=== PATIENT | female | born 1995 | race African-American/Black ===

== ENCOUNTER 2021-06-29 17:11 | Emergency (ER) | payer OTHER, SELFPAY ==
[2021-06-29 17:17] VITALS: BP 125/78; PULSE 109; RESP 18; TEMP 36.8; O2SAT 100
--- NOTE | 2021-06-29 17:28 | ED.ABDPAIN ---
HPI - Abdominal Pain General Chief Complaint: Abdominal Pain Stated Complaint: stomach cramps, n/v Time Seen by Provider: 06/29/21 17:23 History of Present Illness HPI narrative: 26-year-old female presents the emergency room for evaluation of upper abdominal cramping associated with nausea and vomiting constipation. Patient states that she has been nauseated for 5 or 6 days. Patient abdominal pain is described as cramping, and began yesterday. Patient also admits that she has been constipated recently. Denies fever. Also reports irregular menses. Related Data Allergies Allergy/AdvReac Type Severity Reaction Status Date / Time No Known Allergies Allergy Verified 06/29/21 17:25 Review of Systems Review of Systems: CONSTITUTIONAL: Denies fever, chills, or sweats. EYES: Denies visual changes, redness, or discharge. ENT: Denies rhinorrhea, congestion, sore throat, or otalgia. CARDIOVASCULAR: Denies chest pain, palpitations, or edema. RESPIRATORY: Denies cough or dyspnea. GASTROINTESTINAL: Reports abdominal pain, nausea, vomiting, constipation GENITOURINARY: Denies dysuria or hematuria. SKIN: Denies rash or itching. MUSCULOSKELETAL: Denies back pain, joint pain, or myalgia. NEUROLOGIC: Denies headache, numbness, dizziness, or weakness. PSYCHIATRIC: Denies anxiety or depression. Exam Narrative: GENERAL: Well-appearing, well-nourished, and in no acute distress. HEAD: Normocephalic, atraumatic. EYES: PERRLA and EOMI. CHEST: Clear to auscultation. No respiratory distress. No wheezes rales or rhonchi HEART: Regular rate and rhythm. No murmur heard. Normal peripheral pulses. ABDOMEN: Soft, left upper quadrant tenderness, nondistended, normal active bowel sounds. EXTREMITIES: Normal range of motion. No edema. SKIN: Warm, dry, no rash. NEURO: No focal deficits. Alert and oriented x3. PSYCH: Normal mood and affect. Course Vital Signs Vital signs: Vital Signs Temperature 36.8 C 06/29/21 17:17 Pulse Rate 109 H 06/29/21 17:17 Respiratory Rate 18 06/29/21 17:17 Blood Pressure 125/78 06/29/21 17:17 Pulse Oximetry 100 06/29/21 17:17 Oxygen Delivery Room Air 06/29/21 17:17 Temperature 36.8 C 06/29/21 17:17 Pulse Rate 109 H 06/29/21 17:17 Respiratory Rate 18 06/29/21 17:17 Blood Pressure 125/78 06/29/21 17:17 Pulse Oximetry 100 06/29/21 17:17 Oxygen Delivery Room Air 06/29/21 17:17 MDM - Abdominal Pain Lab Data Result diagrams: 06/29/21 17:42 06/29/21 17:42 Labs: Lab Results 06/29/21 06/29/21 06/29/21 Range/Units 17:42 17:42 17:42 WBC 8.2 (4.5-10.0) K/mm3 RBC 4.00 L (4.2-5.4) M/mm3 Hgb 11.8 L (12.0-15.0) g/dL Hct 37.3 (37.0-47.0) % MCV 93.3 (80-100) fl MCH 29.5 (26-34) pg MCHC 31.6 L (32-36) g/dl RDW 15.3 H (11.5-14.5) % Plt Count 265 (150-375) k/mm3 MPV 10.9 H (7.4-10.4) fl Immature Gran % (Auto) 0.1 (0-0.5) % Neut % (Auto) 66.7 (45.5-73.1) % Lymph % (Auto) 27.8 (18.3-44.2) % [place] % (Auto) 4.5 (2.6-8.5) % Eos % (Auto) 0.4 (0-4.4) % Baso % (Auto) 0.5 (0.2-1.2) % Lymph # (Auto) 2.28 (0.9-3.2) K/mm3 [place] # (Auto) 0.4 (0.1-0.6) K/mm3 Eos # (Auto) 0.0 (0-0.3) K/mm3 Baso # (Auto) 0.0 (0.0-0.1) K/mm3 Abs Immat Gran (auto) 0.01 (0.00-0.031) K/mm3 Absolute Neuts (auto) 5.5 (1.3-6.7) K/mm3 Absolute Nucleated RBC 0.0 (0.0-0.012) K/mm3 Nucleated RBC % 0.0 (0.0-0.2) % Sodium 138 (137-145) mmol/L Potassium 4.0 (3.4-5.0) mmol/L Chloride 105 (98-107) mmol/L Carbon Dioxide 25 (22-30) mmol/L Anion Gap 8 (8-16) mmol/L BUN 7 (7-17) mg/dL Creatinine 0.60 L (0.7-1.0) mg/dL Estim Creat Clear Calc 99 ml/min Estimated GFR > 60 (59 - ) Glucose 96 (65-110) mg/dL Calcium 9.2 (8.4-10.2) mg/dL Total Bilirubin 0.8 (0.2-1.3) mg/dL AST 26 (14-36) U/L ALT 23 (6-35) U/L Alkaline Phosp
[2021-06-29 17:51] LABS: Basophils Percent Auto 0.5 % (0.2-1.2); Eosinophils Percent Auto 0.4 % (0-4.4); Hematocrit 37.3 % (37.0-47.0); Hemoglobin 11.8 g/dL (12.0-15.0); Immature Granulocyte Absolute 0.01 K/mm3 (0.00-0.031); Immature Granulocyte Percent A 0.1 % (0-0.5); Lymphocytes Absolute Auto 2.28 K/mm3 (0.9-3.2); Lymphocytes Percent Auto 27.8 % (18.3-44.2); Mean Corpuscular HGB Conc 31.6 g/dl (32-36); Mean Corpuscular Hemoglobin 29.5 pg (26-34); Mean Corpuscular Volume 93.3 fl (80-100); Mean Platelet Volume 10.9 fl (7.4-10.4); Monocytes Absolute Auto 0.4 K/mm3 (0.1-0.6); Monocytes Percent Auto 4.5 % (2.6-8.5); Neutrophils Absolute Auto 5.5 K/mm3 (1.3-6.7); Neutrophils Percent Auto 66.7 % (45.5-73.1); Platelet Count Result 265 k/mm3 (150-375); Red Cell Distribution Width 15.3 % (11.5-14.5); White Blood Count 8.2 K/mm3 (4.5-10.0)
[2021-06-29 17:52] LABS: Appearance Urine Clear (Clear); Bilirubin Urine Negative (Negative); Blood Urine Negative (Negative); Glucose Urine UA Negative (Negative); Ketones Urine Negative (Negative); Leukocyte Esterase Ur Negative LEU/UL (Negative); Nitrate Urine Negative (Negative); Protein Urine Negative (Negative); Urobilinogen Urine 0.2 mg/dL (<2.0)
[2021-06-29 17:56] LABS: Add Urine Microscopic? NO; Color Urine Light Yellow (Yellow)
[2021-06-29] MEDS: ONDANSETRON INJ 4 MG/2 ML VIAL IV PUSH (17:56)
[2021-06-29] MEDS: SODIUM CHLORIDE 0.9% IV 1,000 ML 999 ML IV CONT (17:57)
[2021-06-29] MEDS: DICYCLOMINE HCL INJ 20 MG/2 ML VIAL IM (17:57)
[2021-06-29 17:58] LABS: Alanine Aminotransferase 23 U/L (6-35); Albumin Level 4.6 g/dL (3.5-5.1); Alkaline Phosphatase 58 U/L (38-126); Anion Gap 8 mmol/L (8-16); Aspartate Amino Transferase 26 U/L (14-36); Bilirubin,Total 0.8 mg/dL (0.2-1.3); Blood Urea Nitrogen 7 mg/dL (7-17); Calcium 9.2 mg/dL (8.4-10.2); Carbon Dioxide 25 mmol/L (22-30); Chloride 105 mmol/L (98-107); Estimated CRCL calculation 99 ml/min; Estimated Glomerular Filt Rate > 60; Glucose 96 mg/dL (65-110); Sodium 138 mmol/L (137-145)
--- NOTE | 2021-07-01 11:04 | PC.NURSE ---
late entry 07/01/21 1847 ns bolus liter infused
== END 2021-06-29 18:45 | disposition home or self-care (01) ==
PROVIDERS: Emergency Provider Nurse Practitioner Family
DX: K52.9 Noninfective gastroenteritis and colitis, unspecified (principal)
CPT/HCPCS: 36415; 80053; 81003; 81025; 85025; 96361; 96372; 96374; 99284; J0500; J2405; J7030

== ENCOUNTER 2021-09-20 13:55 | Emergency (ER) | payer OTHER, SELFPAY ==
--- NOTE | ~2021-09-20 | XR_ITS ---
EXAMINATION: XR abdomen obstructive series DATE: 09/20/2021 15:06 INDICATION: Abdominal pain TECHNIQUE: Upright and supine views of the abdomen were obtained. COMPARISON: None. FINDINGS: There are no dilated loops of bowel. No free intraperitoneal gas is identified. There are m ultiple phleboliths of the pelvis. The visualized lung bases are clear. IMPRESSION: 1. Nonobstructive bowel gas pattern. Reviewed, dictated and finalized at location A.
[2021-09-20 13:58] VITALS: BP 122/71; PULSE 102; RESP 16; TEMP 36.8; O2SAT 99
[2021-09-20 14:14] LABS: Basophils Percent Auto 0.4 % (0.2-1.2); Eosinophils Percent Auto 0.3 % (0-4.4); Hematocrit 37.9 % (37.0-47.0); Hemoglobin 11.9 g/dL (12.0-15.0); Immature Granulocyte Absolute 0.04 K/mm3 (0.00-0.031); Immature Granulocyte Percent A 0.4 % (0-0.5); Lymphocytes Absolute Auto 2.12 K/mm3 (0.9-3.2); Lymphocytes Percent Auto 21.5 % (18.3-44.2); Mean Corpuscular HGB Conc 31.4 g/dl (32-36); Mean Corpuscular Hemoglobin 28.7 pg (26-34); Mean Corpuscular Volume 91.5 fl (80-100); Mean Platelet Volume 11.4 fl (7.4-10.4); Monocytes Absolute Auto 0.4 K/mm3 (0.1-0.6); Monocytes Percent Auto 4.2 % (2.6-8.5); Neutrophils Absolute Auto 7.2 K/mm3 (1.3-6.7); Neutrophils Percent Auto 73.2 % (45.5-73.1); Platelet Count Result 198 k/mm3 (150-375); Red Blood Count 4.14 M/mm3 (4.2-5.4); Red Cell Distribution Width 14.7 % (11.5-14.5); White Blood Count 9.8 K/mm3 (4.5-10.0)
[2021-09-20 14:24] LABS: Alanine Aminotransferase 20 U/L (6-35); Albumin Level 4.7 g/dL (3.5-5.1); Alkaline Phosphatase 52 U/L (38-126); Anion Gap 8 mmol/L (8-16); Aspartate Amino Transferase 21 U/L (14-36); Bilirubin,Total 0.3 mg/dL (0.2-1.3); Blood Urea Nitrogen 8 mg/dL (7-17); Carbon Dioxide 27 mmol/L (22-30); Chloride 103 mmol/L (98-107); Estimated CRCL calculation 75 ml/min; Estimated Glomerular Filt Rate > 60; Glucose 111 mg/dL (65-110); Lipase 51 U/L (23-300); Potassium 4.3 mmol/L (3.4-5.0); Sodium 138 mmol/L (137-145)
[2021-09-20 14:42] LABS: Appearance Urine Clear (Clear); Bilirubin Urine Negative (Negative); Blood Urine Negative (Negative); Color Urine Yellow (Yellow); Glucose Urine UA Negative (Negative); Ketones Urine Negative (Negative); Leukocyte Esterase Ur Negative LEU/UL (Negative); Nitrate Urine Negative (Negative); Protein Urine Negative (Negative); Specific Grav Ur 1.015 (1.001-1.035); Urobilinogen Urine 0.2 mg/dL (<2.0); pH Urine 7.5 (5.0-9.0)
[2021-09-20 14:47] LABS: Bacteria Urine 2+ /hpf; Mucus Urine Rare /lpf; RBC Urine 0-2 /hpf (0-2); Squamous Epithelial Cell Urine Many /hpf (Few); WBC Urine 0-3 /hpf
[2021-09-20 15:02] LABS: Add Urine Microscopic? NO
--- NOTE | 2021-09-20 15:06 | ED.GENADULT ---
HPI - General Adult General Chief complaint: Nausea/Vomiting/Diarrhea Stated complaint: stomach cramping and vomiting Time Seen by Provider: 09/20/21 13:59 Source: RN notes reviewed History of Present Illness HPI narrative: Patient presents emergency department from home for abdominal pain. Patient states symptoms been ongoing for the past 6 days. She states that she is having intermittent pain in the left side of the abdomen described as cramping in nature states is associated with intermittent nausea as well as emesis for the past 2 days she states currently she has no abdominal pain and no nausea states she has been constipated with the symptoms she states that she noticed that after she ate at a restaurant that she found out the next day was having health inspection issues she states that she is had no fevers or chills chest pain shortness of breath or any other symptoms Related Data Allergies Allergy/AdvReac Type Severity Reaction Status Date / Time No Known Allergies Allergy Verified 06/29/21 17:25 Review of Systems Review of Systems: Gen.: Denies fevers or chills ENT: Denies congestion Respiratory: Denies shortness of breath or cough CV: Denies chest pain or palpitations Abdomen: See HPI denies burning, urgency, frequency or hematuria Musculoskeletal: Denies back pain or muscle pain Neuro: Denies numbness, tingling, weakness or focal weakness Skin: Denies rash Except as documented, all other systems reviewed and negative [facility] Past Medical History Medical History (Updated 09/20/21 @ 15:26 by Andres Dominique DO) Patient denies significant medical history Social History Social History (Updated 09/20/21 @ 15:15 by Andres Dominique DO) Smoking status: Never smoker Exam Narrative: APPEARANCE: No acute distress, nontoxic, resting in bed EYES: EOMI HEENT: Normocephalic, atraumatic, OMM RESPIRATORY: No respiratory distress Clear to auscultation bilaterally with no rhonchi wheezing or rales. CARDIOVASCULAR: Regular rate and rhythm without murmurs rubs or gallops. ABDOMINAL: Soft, nontender, nondistended, no rebound or guarding MUSCULOSKELETAl: Moves all extremities. No clubbing, cyanosis or edema. NEURO: Awake and alert. Following commands, speech normal, no focal deficits SKIN:: Warm, dry. No rashes lesions or abrasions PSYCHIATRIC: Normal affect/mood, Course Course Emergency Course: Patient is remained asymptomatic throughout stay in ED abdominal exam remains soft and nontender Discussed with patient results of workup and diagnosis. Discussed need for follow-up with primary care, proper use of medication, and reasons to return to the emergency department. Patient understands and agrees to current treatment plan Vital Signs Vital signs: Vital Signs Temperature 98.2 F 09/20/21 13:58 Pulse Rate 102 H 09/20/21 13:58 Respiratory Rate 16 09/20/21 13:58 Blood Pressure 122/71 09/20/21 13:58 Pulse Oximetry 99 09/20/21 13:58 Oxygen Delivery Room Air 09/20/21 13:58 Temperature 98.6 F 09/20/21 15:25 Pulse Rate 80 09/20/21 15:25 Respiratory Rate 18 09/20/21 15:25 Blood Pressure 115/76 09/20/21 15:25 Pulse Oximetry 99 09/20/21 15:25 Oxygen Delivery Room Air 09/20/21 15:25 Medical Decision Making MDM Narrative Medical decision making narrative: Patient's abdomen is soft without significant pain or signs of surgical abdomen on serial exams. Lab and x-ray evaluations are reviewed and patient is felt to be a reasonable candidate for outpatient management. Patient was instructed as to limitations of x-ray and laboratory evaluation and encouraged to return to ED or primary physician for repeat exam in 12 hours if continued or worsening pain Vital Signs Vital Signs: Vital Signs Temperature 98.2 F 09/20/21 13:58 Pulse Rate 102 H 09/20/21 13:58 Respiratory Rate 16 09/20/21 13:58 Blood Pressure 122/71 09/20/21 13:58 Pulse Oximetry 99 09/20/21 13:58 Ox
[2021-09-20 15:25] VITALS: BP 115/76; PULSE 80; RESP 18; TEMP 37; O2SAT 99
[2021-09-20 15:33] VITALS: BP 101/65; BP 103/70; PULSE 82; PULSE 85
[2021-09-20 15:34] VITALS: BP 117/73; PULSE 100
[2021-09-20 16:05] VITALS: BP 105/73; PULSE 76; RESP 18; O2SAT 100
== END 2021-09-20 16:07 | disposition home or self-care (01) ==
LOC: ANHED 15:39
PROVIDERS: Emergency Provider Emergency Medicine
DX: R11.2 Nausea with vomiting, unspecified (principal); R10.9 Unspecified abdominal pain
CPT/HCPCS: 36415; 74019; 80053; 81003; 81025; 83690; 85025; 99283

== ENCOUNTER 2021-11-26 23:31 | Emergency (ER) | payer OTHER, SELFPAY ==
[2021-11-26 23:55] VITALS: BP 140/80; PULSE 96; RESP 16; TEMP 36.8; O2SAT 100
[2021-11-27 01:43] VITALS: BP 124/80; PULSE 84; RESP 16; TEMP 36.8; O2SAT 100
[2021-11-27 02:45] VITALS: BP 105/64; PULSE 69; RESP 16; TEMP 36.8; O2SAT 100
--- NOTE | 2021-11-27 04:59 | ED.GENADULT ---
HPI - General Adult General Chief complaint: Upper Respiratory Infection Stated complaint: cold symptoms Time Seen by Provider: 11/27/21 01:51 History of Present Illness HPI narrative: This is a 26-year-old female presenting ED with cold symptoms. Patient says that starting on she started to have cough and congestion. She says the cough is worse at night and in the mornings. She is coughing up some clear mucus. She denies fever chills. She denies nausea vomiting or diarrhea. She denies chest pain, shortness of breath, abdominal pain or urinary symptoms. She has taken Flonase insert take without any relief. She is requesting cough syrup. Related Data Allergies Allergy/AdvReac Type Severity Reaction Status Date / Time No Known Allergies Allergy Verified 11/26/21 23:57 Review of Systems Review of Systems: CONSTITUTIONAL: Denies night sweats. EYES: No eye pain ENT: Denies rhinorrhea CARDIOVASCULAR: Denies palpitations RESPIRATORY: Denies hemoptysis GASTROINTESTINAL: Denies hematemesis GENITOURINARY: Denies hematuria. SKIN: Denies rash MUSCULOSKELETAL: Denies myalgia. NEUROLOGIC: Denies weakness. PSYCHIATRIC: Denies delusions [facility] Past Medical History Medical History (Updated 11/27/21 @ 05:28 by Richardson Garcia MD) Patient denies significant medical history Social History Social History (Updated 09/20/21 @ 15:15 by Andres Dominique DO) Smoking status: Never smoker Exam Narrative: APPEARANCE: No apparent distress. Head: Atraumatic. no for pharyngeal edema or exudates EYES: PERRLA/EOMI, NOSE: Normal no drainage NECK: Supple, Trachea midline RESPIRATORY: CTAB, No increased work of breathing. CARDIOVASCULAR: S1S2 appreciated ABDOMINAL: Soft, nontender, nondistended, MUSCULOSKELETAl: No obvious deformities NEURO: Alert. Moving 4/4 extremities SKIN:: Warm, dry. Normal color PSYCHIATRIC: Normal affect Course Vital Signs Vital signs: Vital Signs Temperature 98.2 F 11/26/21 23:55 Pulse Rate 96 11/26/21 23:55 Respiratory Rate 16 11/26/21 23:55 Blood Pressure 140/80 11/26/21 23:55 Pulse Oximetry 100 11/26/21 23:55 Oxygen Delivery Room Air 11/26/21 23:55 Temperature 98.3 F 11/27/21 02:45 Pulse Rate 69 11/27/21 02:45 Respiratory Rate 16 11/27/21 02:45 Blood Pressure 105/64 11/27/21 02:45 Pulse Oximetry 100 11/27/21 02:45 Oxygen Delivery Room Air 11/27/21 01:43 Medical Decision Making MDM Narrative Medical decision making narrative: this is a 26-year-old female presenting ED with URI symptoms. Patient was tested for COVID and flu yesterday which were negative. Her vital signs are stable and she is well appearing. She is looking for treatment for her cough. I spoke to her about different options for cough medicine. She would like some Robitussin. Patient will be given robitussin and tylenol. Patient will be discharged home with primary care follow-up. Vital Signs Vital Signs: Vital Signs Temperature 98.2 F 11/26/21 23:55 Pulse Rate 96 11/26/21 23:55 Respiratory Rate 16 11/26/21 23:55 Blood Pressure 140/80 11/26/21 23:55 Pulse Oximetry 100 11/26/21 23:55 Oxygen Delivery Room Air 11/26/21 23:55 Temperature 98.3 F 11/27/21 02:45 Pulse Rate 69 11/27/21 02:45 Respiratory Rate 16 11/27/21 02:45 Blood Pressure 105/64 11/27/21 02:45 Pulse Oximetry 100 11/27/21 02:45 Oxygen Delivery Room Air 11/27/21 01:43 Discharge Plan Discharge Clinical Impression: Upper respiratory infection, Cough Patient Disposition: Home, Self-Care Condition: Stable Instructions: Antibiotic Form, Acute Cough (ED) Additional Instructions: Please take Motrin, Tylenol and Robitussin for symptom control. Please return emergency department if you develop chest pain, difficulty breathing or unable to tolerate p.o.. Please follow-up with your primary care physician for further management Prescripti
== END 2021-11-27 05:43 | disposition home or self-care (01) ==
PROVIDERS: Emergency Provider Emergency Medicine
DX: J06.9 Acute upper respiratory infection, unspecified (principal)
CPT/HCPCS: 99283

== ENCOUNTER 2023-02-22 10:47 | Emergency (ER) | payer OTHER, SELFPAY ==
[2023-02-22 10:49] VITALS: BP 108/69; PULSE 119; RESP 18; TEMP 36.6; O2SAT 100
--- NOTE | 2023-02-22 10:53 | ED.URI ---
HPI - URI/Sore Throat General Chief Complaint: Upper Respiratory Infection Stated Complaint: body aches, cough. 10 weeks Time Seen by Provider: 02/22/23 10:53 Source: patient Mode of arrival: ambulatory Limitations: no limitations History of Present Illness HPI Narrative: Rosa is a 27-year-old female patient presenting to the clinic today with complaints of body aches, cough, nausea, and vomiting. She reports these symptoms started on Monday. Reports not able to keep any fluids down. Feels as though she is dehydrated. She is 10 weeks . Denies any vaginal discharge or bleeding. Denies any abdominal pain or pelvic pain MD elicited complaint: cough, nasal congestion (Nausea, vomiting) and other (Body aches.) Related Data Allergies Allergy/AdvReac Type Severity Reaction Status Date / Time No Known Allergies Allergy Verified 02/22/23 11:04 Review of Systems Review of Systems: Pertinent positives per HPI. Patient denies any fever, chills, rash, headache, visual changes, dizziness, shortness of breath, chest pain, palpitations,diarrhea, constipation, abdominal pain, or any urinary issues. [facility] Past Medical History Medical History Patient denies significant medical history Social History Social History Smoking status: Never smoker Comments At the time of my signature, I reviewed and agree with the nursing past medical, surgical, social, and family history. There is no relevant family history pertinent to the patient complaint. Exam Narrative: General: Well-developed, well nourished, in no apparent distress Head: Normocephalic, atraumatic Eyes: Pupils equally round and reactive to light bilaterally, EOM intact, sclera and conjunctive clear, no discharge, lids normal Ears: TMs intact and clear, ear canals clear, no drainage, grossly hearing normal. Nose: Nares patent, clear discharge, no inflammation, no sinus tenderness. Mouth: Oral pharynx without lesions or masses, good dentition, MM dry. Neck: Supple, trachea midline, no enlargement of anterior or posterior cervical nodes, no thyroid masses or goiter palpable. Cardio: Regular rate and rhythm, s1 and s2 normal, no murmur appreciated. Resp: Clear to auscultation bilaterally, no rhonchi, rales, wheezing or rubs Abdomen: Soft, pliable, bowel sounds present all 4 quadrants, nontender palpation, no organomegaly, no CVAT tenderness Course Course Emergency Course: Portions of this record may have been created with voice recognition software. Vital Signs Vital signs: Vital Signs Temperature 36.6 C 02/22/23 10:49 Pulse Rate 119 H 02/22/23 10:49 Respiratory Rate 18 02/22/23 10:49 Blood Pressure 108/69 02/22/23 10:49 Pulse Oximetry 100 02/22/23 10:49 Temperature 36.6 C 02/22/23 10:49 Pulse Rate 96 02/22/23 14:10 Respiratory Rate 18 02/22/23 14:10 Blood Pressure 102/62 02/22/23 14:10 Pulse Oximetry 100 02/22/23 14:10 Oxygen Delivery Room Air 02/22/23 11:02 Vital signs reviewed MDM - URI/Sore Throat MDM Narrative Medical decision making narrative: At the time of visit patient is resting comfortably on the exam table. Patient appears to be nontoxic. Labs: UA shows a trace of leukocytes otherwise negative. We will send for culture influenza test was positive for influenza A, COVID, influenza B, and RSV testing was negative Medications given: 1 L of normal saline and 4 mg of Zofran IV push Plan: Patient is positive for influenza A. 1 L of fluids and 4 of Zofran was given in the ER today patient states she feels better. Prescription for Tamiflu was sent to the pharmacy. Supportive measures were discussed with the patient and they voiced understanding discharge instructions and agrees to treatment plan. Return precautions reviewed Differential Diagnosis Differentia
[2023-02-22 12:00] LABS: Influenza A QL RT-PCR Positive (Negative); Influenza B QL RT-PCR Negative (Negative); RSV RNA, RT-PCR Negative (Negative); SARS-CoV-2 RNA PCR Negative (Negative)
[2023-02-22] MEDS: SODIUM CHLORIDE 0.9% IV 1,000 ML 999 ML IV CONT (12:57)
[2023-02-22] MEDS: ONDANSETRON INJ 4 MG/2 ML VIAL IV PUSH (12:57)
[2023-02-22 13:20] LABS: Add Urine Microscopic? YES; Appearance Urine Clear (Clear); Bacteria Urine None Seen /hpf; Bilirubin Urine Negative (Negative); Blood Urine Negative (Negative); Color Urine Yellow (Yellow); Glucose Urine UA Negative (Negative); Ketones Urine Negative (Negative); Leukocyte Esterase Ur Trace LEU/UL (Negative); Need Manual Microscopic Reviewed; Nitrate Urine Negative (Negative); Non Pathogenic Casts 0-2; Protein Urine Negative (Negative); RBC Urine 0-2 /hpf (0-2); Specific Grav Ur 1.006 (1.001-1.035); Squamous Epithelial Cell Urine Few /hpf (Few); WBC Urine 0-5 /hpf
[2023-02-22 14:10] VITALS: BP 102/62; PULSE 96; RESP 18; O2SAT 100
== END 2023-02-22 14:14 | disposition home or self-care (01) ==
PROVIDERS: Emergency Provider Nurse Practitioner Family; PCP Family Medicine
DX: O99.511 Diseases of the respiratory system complicating pregnancy, first trimester (principal); J10.1 Influenza due to other identified influenza virus with other respiratory manifestations; Z3A.10 10 weeks gestation of pregnancy; Z20.822 Contact with and (suspected) exposure to COVID-19
CPT/HCPCS: 81001; 87637; 96361; 96374; 99284; J2405; J7030

== ENCOUNTER 2023-08-05 21:04 | Observation (INO) | payer OTHER, SELFPAY ==
[2023-08-05 21:27] VITALS: BP 113/69; PULSE 100
--- NOTE | 2023-08-05 21:28 | LDADM ---
This patient, Rosa Brock, was admitted to Labor/Delivery/Recovery 105 on 08/05/23 at 21:04. Plans for labor, pain management and were discussed with patient. Patient/family oriented to hospital policies and general routines including ID bracelet, bed and alarms, visiting hours, pain management, procedures, bathroom and other care routines, personal items, smoking policy, room service/diet and guest tray routines, security routines, and visiting hours. Patient/Family are encouraged to report perceived risks to care and to ask questions if they do not understand what they are told or what they should do. See [facility]BI[facility] for further documentation.
--- NOTE | 2023-08-05 21:30 | PC.NURSE ---
pt presents to L&D via wheelchair from ER. pt is a , 34 weeks and 5 days . Pt complains of leaking of fluid and back pain that has since ceased. RN performed bedside ROM+.
--- NOTE | 2023-08-07 16:15 | PM.OBTRLD ---
OB - Triage/Final Diagnosis Visit Information Date of evaluation: 08/05/23 Reason for evaluation: threatened labor Comments/Additional reasons for admission: I have assessed the risk for this patient, Rosa Brock, and determined that she would benefit from observation care.
== END 2023-08-05 22:00 | disposition home or self-care (01) ==
PROVIDERS: Admitting Provider Obstetrics & Gynecology; PCP Family Medicine; Visit Provider Obstetrics & Gynecology
DX: O47.9 False labor, unspecified (principal)
CPT/HCPCS: 59025; G0378; G0379

== ENCOUNTER 2023-09-05 07:50 | Inpatient (IN) | payer OTHER, SELFPAY ==
[2023-09-05] VITALS (102 sets, daily range): BP systolic 94–135; BP diastolic 49–88; PULSE 76–237; RESP 18; TEMP 36.4–36.8; O2SAT 83–100; BMI 29.2
--- NOTE | 2023-09-05 08:17 | WPDOBADMIT ---
Obstetrics - Admit Note Admission Note: record reviewed. No pertinent additions to the history and/or any subsequent changes in the physical findings that are not consistent with the expected course of the were found. Additions to the history and/or subsequent changes in the physical findings follow. admit for labor, anticipate vaginal delivery
[2023-09-05 08:37] LABS: Basophils Percent Auto 0.2 % (0.2-1.2); Eosinophils Absolute Auto 0.1 K/mm3 (0-0.3); Eosinophils Percent Auto 0.6 % (0-4.4); Hematocrit 26.8 % (37.0-47.0); Hemoglobin 8.2 g/dL (12.0-15.0); Immature Granulocyte Absolute 0.04 K/mm3 (0.00-0.031); Immature Granulocyte Percent A 0.4 % (0-0.5); Lymphocytes Absolute Auto 1.58 K/mm3 (0.9-3.2); Mean Corpuscular HGB Conc 30.6 g/dl (32-36); Mean Corpuscular Hemoglobin 25.5 pg (26-34); Mean Corpuscular Volume 83.2 fl (80-100); Mean Platelet Volume 11.5 fl (7.4-10.4); Monocytes Absolute Auto 0.6 K/mm3 (0.1-0.6); Neutrophils Absolute Auto 8.2 K/mm3 (1.3-6.7); Neutrophils Percent Auto 77.8 % (45.5-73.1); Platelet Count Result 214 k/mm3 (150-375); Red Blood Count 3.22 M/mm3 (4.2-5.4); Red Cell Distribution Width 16.2 % (11.5-14.5); White Blood Count 10.5 K/mm3 (4.5-10.0)
[2023-09-05] MEDS: AMPICILLIN 2 GM/NS 100 ML 2 GM/100 ML BAG IVPB (09:00)
[2023-09-05] MEDS: LACTATED RINGERS 1,000 ML 125 ML IV CONT ×2 (09:00→09:59)
[2023-09-05 09:28] LABS: HIV 1/2 Ab P24 Ag Result Negative (Negative)
--- NOTE | 2023-09-05 11:18 | WPDANESEPPF ---
Anes - Initial Pre Proc Eval Procedure: labor epidural Date/Time: 09/05/23 11:18 Surgeon: Sohail Benjamin MD Pre Op Diagnosis: labor pain Pre Op Diagnosis: Contractions Patient Data Age: 28 Gender: F Height: 1.6 m Weight: 75 kg Last Vital Signs Pulse 91 09/05/23 11:18 BP 113/78 09/05/23 11:18 Pulse Ox 100 09/05/23 11:16 O2 Del Method Room Air 09/05/23 08:21 Allergies Allergy/AdvReac Type Severity Reaction Status Date / Time No Known Allergies Allergy Verified 02/22/23 11:04 Laboratory Tests 09/05/23 08:15 WBC 10.5 H K/mm3 (4.5-10.0) RBC 3.22 L M/mm3 (4.2-5.4) Hgb 8.2 L D g/dL (12.0-15.0) Hct 26.8 L % (37.0-47.0) MCV 83.2 fl (80-100) MCH 25.5 L pg (26-34) MCHC 30.6 L g/dl (32-36) RDW 16.2 H % (11.5-14.5) Plt Count 214 k/mm3 (150-375) MPV 11.5 H fl (7.4-10.4) Immature Gran % (Auto) 0.4 % (0-0.5) Neut % (Auto) 77.8 H % (45.5-73.1) Lymph % (Auto) 15.0 L % (18.3-44.2) [place] % (Auto) 6.0 % (2.6-8.5) Eos % (Auto) 0.6 % (0-4.4) Baso % (Auto) 0.2 % (0.2-1.2) Lymph # (Auto) 1.58 K/mm3 (0.9-3.2) [place] # (Auto) 0.6 K/mm3 (0.1-0.6) Eos # (Auto) 0.1 K/mm3 (0-0.3) Baso # (Auto) 0.0 K/mm3 (0.0-0.1) Abs Immat Gran (auto) 0.04 H K/mm3 (0.00-0.031) Absolute Neuts (auto) 8.2 H K/mm3 (1.3-6.7) Absolute Nucleated RBC 0.000 K/mm3 (0.0-0.012) Nucleated RBC % 0.0 % (0.0-0.2) RPR Pending HIV 1&2 Ab/P24 Ag 4thGn Negative (Negative) Blood Type O Positive Antibody Screen Negative Patient hx anesthesia problems: none Family hx anesthesia problems: none Results Review: All pre-operative results and documents have been reviewed as part of the pre-operative evaluation. COUNT INCLUDES [facility] Past Medical History Medical History Patient denies significant medical history Social History Social History Smoking status: Never smoker Do You Feel Safe in your Home?: Yes Lack of Transportation: No Lack of Food: Never True Current Housing: I Have Housing Concerned About Future Housing: No Difficulty Paying Gas/Electric Bills: No Difficulty Paying for Meds: No Currently Unemployed: No Education: Trade/Vocational Certificate Difficulty w/ Childcare or Family Care: No Spiritual care concerns: No Anes - Eval Final PreProcedure Day of Procedure 09/05/23 11:18 Patient weight: overweight ASA classification: II Anesthetic plan: proceed Anesthesia type and monitoring: regional epidural and standard monitoring Results Review: All pre-operative results and documents have been reviewed as part of the pre-operative evaluation. Informed Consent: The patient's anesthetic plan and its attendant risks and benefits were discussed with the patient/family/POA. Questions were solicited and answers provided to the satisfaction of the patient/family/POA.
[2023-09-05 11:38] LABS: Rapid Plasma Reagin Non-Reactive (NonReactive)
[2023-09-05] MEDS: AMPICILLIN 1 GM/NS 50 ML 1 GM/50 ML BAG IVPB (13:02)
[2023-09-05] MEDS: OXYTOCIN 30 UNITS/NS 500 ML 30 UNITS/500 ML BAG IV CONT (14:43)
--- NOTE | 2023-09-05 15:56 | PM.OBPRVD ---
OB - Vaginal Delivery Note Procedure Delivery date: 09/05/23 Events: Other (anemia) Intrapartal Events: Ineffetive Pushing/Maternal Exhaustion and Other (meconium) Delivery augmentation: Rupture of Membranes and Pitocin Delivery monitor: External FHT and External Uterine Route of delivery: Episiotomy description: None Laceration Description: None Specimen: No Quantitative Blood Loss (ml): 100 Anesthesia type: Epidural Disposition: Floor Complications: No immediate complications [place] Baby Date of : 09/05/23 Time of : 15:48 Gestational Age by Date: 39 Infant gender: Female presentation: vertex position: Left Occiput Anterior Placenta delivery description: Spontaneous Cord Vessel Description: 3 Vessels, Nuchal Cord and Tight (clamped and cut on perineum) Narrative: baby to neonatal intensive care nurse for evaluation
[2023-09-05] MEDS: BENZOCAINE 20% AER SPR (*SP) 56 GM CAN 1 SPRAY TOPICAL (16:24)
[2023-09-05] MEDS: OXYTOCIN 30 UNITS/NS 500 ML 30 UNITS/500 ML BAG 125 UNITS IV CONT (16:24)
[2023-09-05] MEDS: WITCH HAZEL 40 PADS 1 PAD TOPICAL (16:24)
[2023-09-05] MEDS: IRON SUCROSE COMPLEX 400 MG in SODIUM CHLORIDE 0.9% IV 250 ML 108 MG IVPB (17:22)
--- NOTE | 2023-09-05 19:18 | OBPPTRN ---
Patient transferred to post room #291via wheelchair. Support person present. Oriented to unit, room, information board, rooming in, admission packet and security measures. Patient verbalizes understanding.
[2023-09-05] MEDS: ONDANSETRON INJ 4 MG/2 ML VIAL IV PUSH (19:30)
[2023-09-05] MEDS: IBUPROFEN 600 MG TABLET PO (20:48)
[2023-09-06 00:09] VITALS: BP 100/59; PULSE 88; RESP 18; TEMP 36.4; O2SAT 100
[2023-09-06] MEDS: IBUPROFEN 600 MG TABLET PO ×3 (02:51→16:07)
[2023-09-06 04:41] LABS: Hematocrit 25.2 % (37.0-47.0); Hemoglobin 7.7 g/dL (12.0-15.0)
--- NOTE | 2023-09-06 07:39 | PM.OBPNVD ---
OB - PN: Subj Subjective Date/time seen: 09/06/23 07:39 Interval history: pp day 1 doing well iron transfusion yesterday baby doing well OB - PN: Obj Data Labs 09/06/23 04:06 Labs: Laboratory Results - last 24 hr 09/05/23 09/06/23 08:15 04:06 WBC 10.5 H RBC 3.22 L Hgb 8.2 L D 7.7 L Hct 26.8 L 25.2 L MCV 83.2 MCH 25.5 L MCHC 30.6 L RDW 16.2 H Plt Count 214 MPV 11.5 H Immature Gran % (Auto) 0.4 Neut % (Auto) 77.8 H Lymph % (Auto) 15.0 L [place] % (Auto) 6.0 Eos % (Auto) 0.6 Baso % (Auto) 0.2 Lymph # (Auto) 1.58 [place] # (Auto) 0.6 Eos # (Auto) 0.1 Baso # (Auto) 0.0 Abs Immat Gran (auto) 0.04 H Absolute Neuts (auto) 8.2 H Absolute Nucleated RBC 0.000 Nucleated RBC % 0.0 RPR Non-reactive HIV 1&2 Ab/P24 Ag 4thGn Negative Blood Type O Positive Antibody Screen Negative OB - PN A/P Plan day: 1 Plan: routine care Time Spent With Patient Time: Total time spent is greater than 50% in coordination of care (as documented) at patient's floor/unit and/or counseling patient: Review of Systems Review of Systems: All systems reviewed & are unremarkable except as noted in HPI and below Exam Const: General: cooperative and healthy appearing Chest: Chest palpation & inspection: normal inspection of the chest Resp: Effort & Inspection: normal respiratory effort Cardio: Rate: regular rate Rhythm: regular rhythm Skin: General skin exam: normal color
[2023-09-06 07:45] VITALS: BP 101/64; PULSE 84; RESP 16; TEMP 36.9; O2SAT 100
--- NOTE | 2023-09-06 08:29 | WPDANLDPN2 ---
Anes-Prog Note L&D Date/Time: 09/06/23 08:29 Comfortable throughout: labor and delivery Neuraxial method: epidural Epidural/Spinal procedure site: clean & non-tender Neuro status: Neuro function grossly intact. Cardiovascular status: normal Respiratory status: normal Airway patency: baseline Mental status: baseline Post-Op hydration status: normal Vital Signs: Last Vital Signs Temp 36.4 C L 09/06/23 00:09 Pulse 88 09/06/23 00:09 Resp 18 09/06/23 00:09 BP 100/59 L 09/06/23 00:09 Pulse Ox 100 09/06/23 00:09 O2 Del Method Room Air 09/05/23 08:21 Pain score (VAS): 0/10 I/O: Intake & Output 09/05/23 09/06/23 09/06/23 23:59 07:59 15:59 Intake Total 770 Output Total 825 Balance -55 Post-procedural complaints: none Patient feedback: Patient satisfied with anesthetic care.
[2023-09-06] MEDS: POLYSACCHARIDE IRON COMPLEX 150 MG CAPSULE PO ×2 (08:55→16:07)
[2023-09-06] MEDS: DOCUSATE SODIUM 100 MG CAPSULE PO ×2 (08:55→16:08)
[2023-09-06] MEDS: MULTIVIT/MIN/PREN/FOL AC/IRON TABLET 1 TAB PO (08:56)
--- NOTE | 2023-09-06 11:25 | PC.NURSE ---
Mother verbalizes she is able to independently latch with appropriate positioning and alignment. She denies any nipple discomfort and is responsively . Infant is currently meeting outcomes for weight, output, jaundice, blood sugar and feeding frequencies of 8-12 times in 24 hours. Mother declines any additional assistance or education at this time. Mother had baby latched to the left breast in cradle hold. Baby was suckling vigorously. Mother is encouraged to call for assistance if her infant doesn?t latch, pain with latching, questions or concerns. Mother voiced understanding of information shared along with the mom/baby guide for an additional resource. Reported to the Primary RN.
[2023-09-06 12:24] VITALS: BP 112/65; PULSE 87; RESP 16; TEMP 37; O2SAT 99
[2023-09-06 21:02] VITALS: BP 114/72; PULSE 95; RESP 18; TEMP 37.9; O2SAT 98
[2023-09-07 00:11] VITALS: TEMP 37.3
[2023-09-07] MEDS: IBUPROFEN 600 MG TABLET PO ×2 (00:12→08:17)
[2023-09-07] MEDS: DOCUSATE SODIUM 100 MG CAPSULE PO (08:17)
[2023-09-07] MEDS: POLYSACCHARIDE IRON COMPLEX 150 MG CAPSULE PO (08:17)
[2023-09-07] MEDS: MULTIVIT/MIN/PREN/FOL AC/IRON TABLET 1 TAB PO (08:17)
--- NOTE | 2023-09-07 08:20 | PM.OBPNVD ---
OB - PN: Subj Subjective Date/time seen: 09/07/23 08:20 Interval history: pp day 1 doing well iron transfusion yesterday baby doing well Patient comments: no complaints, pain well controlled and tolerating diet OB - PN: Obj Data Labs 09/06/23 04:06 OB - PN A/P Plan day: 2 Plan: routine care and discharge home Time Spent With Patient Time: Total time spent is greater than 50% in coordination of care (as documented) at patient's floor/unit and/or counseling patient: Exam Const: General: comfortable and no acute distress Resp: Effort & Inspection: normal respiratory effort Auscultation: no rales, no rhonchi and no wheezes Cardio: Rate: regular rate Heart sounds: no click, no murmurs and no rubs GI: GI Palp: Yes Soft to palpation and No Tenderness to palpation present (GI) Auscultation: normal bowel sounds Extrem: General: normal to inspection, no pedal edema and no calf tenderness
--- NOTE | 2023-09-07 08:21 | PM.OBDSVD ---
DS: Admitting Diagnosis Discharge Date September 07, 2023 Admitting Diagnosis term DS: Discharge Diagnosis Discharge Diagnosis (1) Post term , delivered: Code(s): O48.0 - Post-term Status: Acute OB - DS: Summary OB Procedures : None OB Procedures Intrapartum: Spontaneous Vag Delivery OB Procedures: : None Peripartum Data Laceration Description: None Episiotomy description: None Time Spent with Patient Time attestation: Total time spent providing and/or coordinating discharge services: Discharge Plan Discharge Attending physician on discharge: Sohail Benjamin Discharging Clinician: Kina Reyes Patient Disposition: Home, Self-Care Activity: pelvic rest Diet: regular Patient Instructions: Antibiotic Form Stand Alone Forms: General Discharge Information Follow-up/Referrals: Kina Reyes CNM [Certified Nurse [employer]] - 4 Weeks Discharge Medications: New ibuprofen 600 mg Tablet 600 mg PO Q6H PRN (Reason: Cramping) Qty: 30 0RF ferrous gluconate 324 mg (38 mg iron) tablet 324 mg PO DAILY Qty: 60 0RF Date of admission: 09/05/23 07:50 Primary Care Provider: José,Nasir Shirley Admitting Provider: Sohail Benjamin Attending physician on admission: Sohail Benjamin Condition: Stable
[2023-09-07 08:50] VITALS: BP 106/63; PULSE 84; RESP 16; TEMP 36.9; O2SAT 100
--- NOTE | 2023-09-07 09:54 | PC.NURSE ---
Patient viewed the discharge video Mother & Baby Care, The First Two Weeks . Patient was given the opportunity and encouraged to ask questions. Patient verbalized understanding of information shared and has been given the mother/baby guide for home reference.
[2023-09-08 12:00] VITALS: BP 114/61; PULSE 80; RESP 18; TEMP 36.9; O2SAT 100
== END 2023-09-07 11:50 | disposition home or self-care (01) | DRG 560 ==
LOC: ANHLDR 08:11 → ANHOB2 20:02
PROVIDERS: Admitting Provider Obstetrics & Gynecology; PCP Family Medicine; Referring Provider Advanced Practice Midwife; Visit Provider Obstetrics & Gynecology
DX: O99.824 Streptococcus B carrier state complicating childbirth (principal); Z37.0 Single live birth; Z3A.39 39 weeks gestation of pregnancy; O75.81 Maternal exhaustion complicating labor and delivery; O99.02 Anemia complicating childbirth; D64.9 Anemia, unspecified; O69.1XX0 Labor and delivery complicated by cord around neck, with compression, not applicable or unspecified
CPT/HCPCS: 36415; 85014; 85018; 85025; 86592; 86703; 86850; 86900; 86901; A9270; G0432; J0290; J2405; J2590; J2795; J7050; J7120

== ENCOUNTER 2024-07-14 07:53 | Emergency (ER) | payer OTHER, SELFPAY ==
--- OUTSIDE RECORDS SUMMARY | 2024-07-14 07:57 | XMS_ITS | Data Portability ---
Author Organization [facility] Address [address] [place] [address] Care Team Providers Care Story Reader Name Role Phone ANJANA VALDOVINOS Primary Care Provider Assessment Encounter Date Assessment Date Assessment LastModified by Organization Details LastModified Time 05/20/2021 05/20/2021 cough / allergies [email or web address] Not available 05/20/2021 15:56:51 Plan of Treatment Reminders Order Date Submit Date Provider Last Modified By Organization Details Last Modified Time Details Appointments None recorded. Lab None recorded. Referral None recorded. Procedures None recorded. Surgeries None recorded. Imaging None recorded. Medication Orders sertraline 25 mg tablet 2022 023 [place] [facility]56659, [address], [place], [id number], 3 12:08:48 Zithromax Z-Dannie 250 mg tablet 2021 022 [email or web address] [facility], [address], [place], [id number], 3 11:53:26 promethazin e 6.25 mg/5 mL oral syrup 2021 [email or web address] [facility] #98252, [address], [place], [id number], 3 11:53:47 Zithromax Z-Dannie 250 mg tablet 2021 022 [facility] #80298, [address], [place], [id number], 3 11:53:26 promethazin e-DM 6.25 mg-15 mg/5 mL oral syrup 2021 [email or web address] [facility] #70960, [address], [place], [id number], 3 11:53:49 Zithromax Z-Dannie 250 mg tablet 2021 022 [email or web address] [facility] #32257, [address], [place], [id number], 3 11:53:26 promethazin e 6.25 mg/5 mL oral syrup [address] [facility] #12974, [address], [place], [id number], 3 11:53:47 promethazin e 6.25 mg/5 mL oral syrup [email or web address] [facility] #00564, [address], [place], [id number], 3 11:53:47 Patient TargetsNo targets recorded. Patient Instructions Encounter Date Encounter Id Patient Instructions Last Modified By Organization Details Last Modified Time 07/13/2020 [id number] cough: care instructions [email or web address] Not available 07/13/2020 19:27:38 Follow up with your doctor. [email or web address] Not available 07/14/2020 00:52:21 05/20/2021 [id number] cough: care instructions [email or web address] Not available 05/20/2021 15:56:53 07/09/2021 [id number] upper respiratory infection (cold): care instructions [email or web address] Not available 07/09/2021 20:21:26 Follow up with your doctor . [email or web address] Not available 07/11/2021 14:20:05 12/01/2021 [id number] upper respiratory infection (cold): care instructions [email or web address] Not available 12/01/2021 19:10:35 Drink plenty fluids. Get rest if possible. Stay warm. Take your medicines as directed. Gargle with warm water and baking soda twice a day. Follow up with your doctor. Call us or go to the emergency room if you worsen. [email or web address] Not available 12/01/2021 23:50:58 Reason for Referral None Reported. Problems Name Problem SNOMED Code Status Onset Date Resolution Date Notes Provider Name and Address Organization Details Recorded Time Nausea and vomiting 38134652 Active 2016 Epi vallecillo, [place] - [facility] 8 14:24:53 79949319 Active 2016 Anu Barnes MA null, [place] - [facility] 2 18:37:57 Upper respiratory infection 24044049 Completed 03/15/2016 He Mancilla MD Attn: Olivia lilly,[address] [place], [address] [facility] [place] [facility] 7 09:59:28 Allergic rhinitis 66979360 Active Anu Barnes [place] null, [place] - [facility] 2 18:37:51 Notes:RTC for depo. No probl ems. Some spotting. Problem Notes None recorded. Procedures Surgical History Date Name Laterality Status Provider Name and Address Organization Details Recorded Time 5 Depo Injection completed Tala Bateman [place] [facility] 07/15/2014 11:03:27 5 Depo Injection completed Khalida Modi [place] [facility] 04/15/2014 15:59:11 4 Depo Injection completed Mayi Salguero [place] [facility] 01/21/2014 16:15:01 Imaging Results None recorded. Procedure Notes None recorded. Medical Equipment None Reported. Allergies No known drug allergies Medications Name Sig Start Date Stop Date Status Note LastModified by Organization Details LastModified Time promethazin e-DM 6.25 mg-15 mg/5 mL oral syrup TAKE 5 ML BY MOUTH FOUR TIMES DAILY NEEDED FOR COUGH 03/17 completed Not Available Not Available Not Available prednisone 10 mg tablet active Not Available Not Available Not Available cetirizine 10 mg tablet Take 1 tablet every day by oral route for 30 days. 07/09 completed Not Available Not Available Not Available azithromyci n 250 mg tablet TAKE 2 TABLETS BY MOUTH FOR 1 DAY THEN TAKE 1 TABLET BY MOUTH DAILY UNTIL ALL TAKEN 03/17 completed Not Available Not Available Not Available benzonatate 200 mg capsule 03/17 completed Not Available Not Available Not Available promethazin e 6.25 mg/5 mL oral syrup TAKE 10 ML BY MOUTH EVERY 6 HOURS 03/17 completed Not Available Not Available Not Available promethazin e 6.25 mg-codeine 10 mg/5 mL syrup TAKE 5 ML BY MOUTH EVERY 4 TO 6 HOURS NEEDED FOR COUGH 03/17 completed Not Available Not Available Not Available acetaminoph en 500 mg tablet TAKE 2 TABLETS BY MOUTH THREE TIMES DAILY NEEDED 03/17 completed Not Available Not Available Not Available famotidine 20 mg tablet TAKE 1 TABLET BY MOUTH DAILY 03/17 completed Not Available Not Available Not Available Depo-Apartment Leasing Manager a 150 mg/mL intramuscul ar suspension Inject 1 mL every 3 months by intramusc ular route. 07/09 completed Not Available Not Available Not Available dicyclomine 20 mg tablet TAKE 1 TABLET BY MOUTH THREE TIMES DAILY NEEDED FOR ABDOMINAL CRAMPS 03/17 completed Not Available Not Available Not Available Flagyl 500 mg tablet Take 4 tablets every day by oral route. 07/09 completed Not Available Not Available Not Available sulfacetami de sodium 10 % eye drops active Not Available Not Available Not Available cephalexin 500 mg capsule 03/02 completed Not Available Not Available Not Available Guaifenesin AC 10 mg-100 mg/5 mL oral liquid active Not Available Not Available Not Available promethazin e 25 mg tablet TAKE 1 TABLET BY MOUTH EVERY 4 TO 6 HOURS NEEDED NAUSEA 03/17 completed Not Available Not Available Not Available sertraline 25 mg tablet TAKE 1 TABLET BY MOUTH EVERY DAY AT BEDTIME active Not Available Not Available No t Available ibuprofen 600 mg tablet TAKE 1 TABLET BY MOUTH EVERY 6 HOURS NEEDED FOR PAIN 03/17 completed Not Available Not Available Not Available hydrocodone 10 mg-chlorphe niramine 8 mg/5 mL oral susp extend.rel 12hr 03/17 completed Not Available Not Available Not Available albuterol sulfate HFA 90 mcg/actuati on aerosol inhaler 03/17 completed Not Available Not Available Not Available ondansetron 4 mg disintegrat ing tablet DISSOLVE 1 TABLET ON THE TONGUE EVERY 6 HOURS NEEDED FOR NAUSEA OR VOMITING 03/17 completed Not Available Not Available Not Available fluticasone propionate 50 mcg/actuati on nasal spray,suspe nsion Inhale 1 spray every day by intranasa l route. 07/09 completed Not Available Not Available Not Available Tablet 28 mg iron-800 mcg Take 1 tablet every day by oral route. 07/09 completed Not Available Not Available Not Available azithromyci n 500 mg tablet Take 2 tablets every day by oral route for 1 day. 07/09 completed Not Available Not Available Not Available medroxyprog esterone 150 mg/mL intramuscul ar syringe Inject 150 mg every 3 months by intramusc ular route for 90 days. active Not Available Not Available No t Available nitrofurant oin monohydrate /macrocryst als 100 mg capsule 07/09 completed Not Available Not Available Not Available 28 mg iron-800 mcg tablet 07/09 completed Not Available Not Available Not Available Gummy 400 mcg-35 mg-25 mg-5 mg chewable tablet Take 1 tablet by oral route. 07/09 completed Not Available Not Available Not Available ID NOW COVID-19 Test Kit TEST DIRECTED TODAY 03/17 completed Not Available Not Available Not Available Vitals Date Recorded Heart rate Oxygen saturation Oxygen saturation in Arterial blood by Pulse oximetry Provider Name and Address Organization Details Last Updated DateTime 03/17/2022 80 /min 98 % 98 % YAMILKA MONATLVO Attn: Accounting, [address] [facility], [place], [address], [place] [facility] 03/17/2022 14:23:05 Date Recorded Body height Body mass index (BMI) Body weight Respiratory rate Body temperature Systolic blood pressure Diastolic blood pressure Provider Name and Address Organization Details Last Updated DateTime 3 158.75 cm 20.6 kg/m2 90482.9 3 g 16 /min 97.6 [degF] 100 mm[Hg] 72 mm[Hg] Lakisha Acevedo MA [facility] 3 11:53:12 Date Recorded Body height Provider Name an d Address Organization Details Last Updated DateTime 07/09/2021 158.75 cm Anu Barnes MA [facility] 022 18:36:19 Date Recorded Body height Provider Name an d Address Organization Details Last Updated DateTime 12/01/2021 158.75 cm Fanny burns MA [facility] 12/01/2021 17:57:16 Social History Question Answer Notes LastModified by Organizat ion Details LastModified Time Tobacco Smoking Status Never Smoker Mayi Salguero MA null, [place] [facility] 01/21/2014 16:15:01 Animal Exposure? No Informat ion not available 11/18/2015 Are You Blind Or Do You Have Difficulty Seeing? No Information not available 07/13/2020 What Is Your Level Of Caffeine Consumption? Occasional Information not available 11/18/2015 In The 14 Days Before Symptom Onset, Have You Had Close Contact With A Laboratory-confi rmed COVID-19 While That Case Was Ill? No Information not available 07/13/2020 In The 14 Days Before Symptom Onset, Have You Had Close Contact With A Person Who Is Under Investigation For COVID-19 While That Person Was Ill? No Information not available 07/13/2020 Have You Been To An Area Known To Be High Risk For COVID-19? No Information not available 07/13/2020 Are You Deaf Or Do You Have Serious Difficulty Hearing? No Information not available 07/13/2020 What Type Of Diet Are You Following? REGULAR Information not available 04/10/2015 Are There Any Guns Present In Your Home? No Information not available 12/01/2021 What Is Your Home Situation? Other Boyfriend And Daughter Information not available 07/13/2020 What Was The Date Of Your Most Recent Tobacco Screening? 03/17/2022 [email or web address] Information not available 03/17/2022 How Many Children Do You Have? 1 Information not available 07/13/2020 Do You Use Protection During Sex? No Information not available 07/13/2020 What Is Your Relationship Status? Single Information not available 07/13/2020 Do You Use Your Seat Belt Or Car Seat Routinely? Yes Information not available 07/13/2020 Are You Sexually Active? Yes Information not available 07/13/2020 Do You Have Smoke And Carbon Monoxide Detectors In Your Home? Yes Information not available 11/18/2015 Are You Passively Exposed To Smoke? No Information not available 11/18/2015 Do You Use Sunscreen Routinely? No Information not available 12/01/2021 Has Tobacco Cessation Counseling Been Provided? Yes Information not available 12/01/2021 On What Date Was Tobacco Cessation Counseling Provided? 03/17/2022 [email or web address] Information not available 03/17/2022 Year In School 12 Informatio n not available 08/18/2015 Sex: Female Functional Status Question Answer Note LastModified by Organizat ion Details LastModified Time Do you use any illicit or recreational drugs? No Denies Information not available 07/13/2020 Do you or have you ever used any other forms of tobacco or nicotine? No Information not available 12/01/2021 What is your level of alcohol consumption? None Denies Information not available 07/13/2020 Are you currently employed? Yes Information not available 07/13/2020 Are you able to care for yourself? 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 Moderate Information not available 11/18/2015 Mental Status Question Answer Note LastModified by Organization D etails LastModified Time Do you feel stressed (tense, restless, nervous, or anxious, or unable to sleep at night)? [id number] Information not available 07/13/2020 Family History Nothing Reported. Medical History Condition Response Coronary Artery Disease N Other N Atrial Fibrillation N High Blood Pressure N Thyroid Problems N Kidney or Bladder Problems N GI Problems N Depression N COPD N Blood Clots N Eating Disorder N Skin Problems N Anemia N Heart Attack (CT) N Diabetes N Anxiety Disorder N Muscle, Joint, or Bone Problems N Seizures/Epilepsy N Acid Reflux (GERD) N Cancer N Stroke N Asthma N Allergies N ADHD N Substance Abuse N High Cholesterol N Hepatitis N Liver Disease N Schizophrenia N Headaches N Osteoporosis N Heart Failure N Gynecological History Statement/Question Response Flow Moderate Date of LMP 07/03/2021 On BCP's at Conception? N Menses Monthly N Duration of Flow (days) 5 Current Control Method None LMP Approximate Desired Control Method Hormonal In jection Obstetrics History GPAL:G 1 P 0 0 0 0 Immunizations Vaccine Type Date Status Note Provider Nam e and Address Organization Details Recorded Time varicella 6 completed Not Available [facility] 02/23/2019 02:29:51 HPV9 6 completed Not Available [facility] 02/23/2019 02:46:08 meningococcal B, OMV 6 completed Not Available [facility] 02/23/2019 02:32:05 Influenza, split virus, quadrivalent, PF 6 completed Not Available [facility] 02/23/2019 02:44:18 HPV9 6 completed Not Available [facility] 02/23/2019 02:46:45 meningococcal MCV4P 6 completed Not Available [facility] 02/23/2019 02:30:17 meningococcal B, OMV 7 completed Not Available [facility] 02/23/2019 02:51:05 Past Encounters Encounter ID Performer Location Encounter Start Date Encounter Closed Date Diagnosis/Indication Diagnosis SNOMED-CT Code Diagnosis ICD10 Code Diagnosis Note [id number] [facility] [address] [place] [address] 01/21/2014 15:57:53 01/21/2014 17:35:55 Uses contraception 83250029 [id number] Leigh Muse MD [facility] ([facility]) [address] [place] [address] 04/15/2014 15:05:44 04/15/2014 16:10:23 Uses contraception [id number] Leigh Muse MD [facility] ([facility]) [address] [place] [address] 07/15/2014 10:15:42 07/15/2014 16:58:07 Uses contraception 17333831 [id number] He maciel MD [address] [address] 10/14/2014 14:39:29 10/16/2014 14:51:30 Uses contraception 24432073 urine hcg neg [id number] He maciel MD [address] [address] 01/12/2015 15:18:12 01/21/2015 03:47:49 Uses contraception 66885858 Z79.3 History of urinary tract infection 5851642372 107 Z87.440 u/a with tr LE, neg nitrite, prt 30, small bili- pt is spotting no signs of UTI Upper resp iratory infection 89731625 J06.9 Cont symptomati c care Cont OTC meds [id number] He maciel MD [address] [place] [address] 04/10/2015 14:27:52 04/16/2015 11:52:57 Contraception care 438666320 Z30.40 Allergic rhinitis 251641 04 J30.9 [id number] He maciel MD [address] [place] [address] 08/18/2015 14:57:13 08/23/2015 03:48:32 Contraception care 296837903 Z30.40 Urine HCG neg Urine gc/chl today Depo today F/u in 3 mo Active or passive immunization 113695942 Z23 Varicella# 2, HPV#1, Bexsero#1 Will need HPV#2, Bexero#1, MCV4#2 at next visit [id number] He maciel MD [address] [place] [address] 09/02/2015 11:35:07 09/04/2015 03:47:42 Infection screening 398094101 Z11.9 [id number] He maciel MD [address] [place] [address] 11/18/2015 14:40:19 11/19/2015 08:38:06 Contraception care 168814126 Z30.40 Depo today pt unable to urinate today F/u in 3 mo Active or passive immunization 475323866 Z23 HPV#2, flu and MCV4#2 Will given bexero#2 at next visit Upper resp iratory infection 54112732 J06.9 symptomati c tx cont day quil and night quil Use fito's vapor rub F/u prn [id number] He maciel MD [address] [place] [address] 03/14/2016 16:20:33 03/18/2016 13:31:07 Contraception care 819605798 Z30.40 Active or passive immunization 468464162 Z23 MenB#2 Will give HPV#3 at next visit [id number] Pieter Durant MD [facility] ([facility]) [address] [place] [address] 01/31/2017 15:21:51 01/31/2017 16:20:37 Normal 78814424 Z34.90 [id number] Nilson Montero MD [address] [address] 07/13/2020 17:42:34 07/14/2020 14:19:38 Cough 98531826 R05 [id number] Hilda Scott MD [address] [address] 05/20/2021 14:46:45 05/21/2021 10:17:26 Cough 54756280 R05.9 Allergic rhinitis 748302 04 J30.9 [id number] Nilson Montero MD [address] [address] 07/09/2021 17:45:27 07/12/2021 09:17:24 Upper respiratory infection 72376091 J06.9 [id number] Nilson Montero MD [facility] [address] [place] [address] 12/01/2021 17:14:58 12/02/2021 08:33:51 Upper respiratory infection 28369714 J06.9 [id number] Skip zelaya MD [facility] [address] [place] [address] 03/17/2022 11:42:17 03/17/2022 12:11:51 Mixed anxiety and depressive disorder 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 Go to ER or call 911 for crisis (e.g., suicidal behaviors, suicidal ideations, intent or plan emerge). Additional ly, patient has suicide hotline #[phone].- f/u one month- call with questions Health Concerns Section Related Observation LastModified by Organization Detai ls LastModified Time None Recorded Concern Status LastModified by Organization Details LastModified Time None Recorded Advance Directives Directive None Recorded Payers Encounter Date Sequence Insurance Name Policy Number Policy Cisneros Covered Member ID Cisneros Member ID Guarantor Name 07/13/2020 1 [facility] (MEDICAID HMO) [id number] Alecxandr Brock [id number] Alecxandria Vinod 05/20/2021 1 [facility] (MEDICAID HMO) [id number] Alecxandr Brock [id number] Alecxandria Brock 07/09/2021 1 [facility] (MEDICAID HMO) [id number] Alecxandr Brock [id number] Alecxandria Brock 12/01/2021 1 [facility] (MEDICAID HMO) [id number] Nikko Brock [id number] Rosa Brock 03/17/2022 1 [facility] (MEDICAID HMO) [id number] Nikko Brock [id number] Rosa Brock Notes Date Note Type Note Provider Name and Address Organization Details Recorded Time 07/13/2020 text/html Phone visit: Suresh [facility] Care: In for a cold with cough & congestion x 6 days. No chills or fever. No diarrhea. No known exposure to the coronavirus. She works at [employer] though. She tested neg. last week. She has been on antibiotics. She declines steroids. She doesn't need nasal spray. Nilson Montero MD Attn: Accounting, [address] [place], [address], [facility] 07/14/2020 00:52:40 05/20/2021 text/html Phone visit: Suresh ck Care: In for a cold with cough & congestion x 6 days. No chills or fever. No diarrhea. No known exposure to the coronavirus.She has been on antibiotics. She declines steroids. She doesn't need nasal spray. HONEY Desai NP Attn: Accounting, [address] [place], [address], [facility] 05/20/2021 15:57:13 07/09/2021 text/html Phone visit. Suresh ck care. The patient calls into quick care with a complaint of a cough and cold for approximately one week duration. She denies being exposed to Covid. On the cough medicine, she asked for a different flavor or color. Nilson Montero MD Attn: Accounting, [address] [place], [address], [facility] 07/11/2021 14:20:22 12/01/2021 text/html Phone visit: Suresh ck Care: In for a cold with cough & congestion x 6 days. No chills. She had fever . No diarrhea. She went to the emergency room last week and was told that she probably had the flu. Nilson Montero MD Attn: Accounting[address] [facility] [place], [address], [facility] 12/01/2021 23:51:08 03/17/2022 text/html Pt presents for anxiety and depression. Reports she went through a rough time high school due to self harm with cutting and went to therapist for many years. C/o worsening anxiety and depression since her daughter was born 4 yrs ago. States that she is always nervous, mind is racing, unable to sleep. Symptoms are affecting her work. Tried xanax in the past. Denies SI/HI. YAMILKA MONTALVO Attn: Accounting,[address], [place], [address], [facility] 03/17/2022 14:25:44 OBGyn Episode Ob Episode Information Episode Created Date Number of Fetuses Patient Bloodtype Patient rh Status Prepregnancy Weight lbs Domestic Partner Domestic Partner Phone Father Name Able Seaman Status 02/01/20 17 1 OPEN Fetus Data First Name Last Name Admitted to NICU Weight (g) Sex Living Outcome Pediatric Complications Fetus ID Race Codes Race Delivery Type [id number] Problems Problem Notes Problem Name Start Date End Date Resolution Snomed Code Not e Nausea and vomiting 01/31/[id number] Calculation Initial Lane Date Initial Exam Date Initial Exam Provider Initial Ultrasound Date Last Menstrual Period Date Ultra Sound Weeks Gestation 09/17/2017 01/31/2017 02/08/2017 12/11/[address] Update Ultra Sound Date Fundal Height At Umbil Quickening Date Ultra Sound Latest Weeks Gestation Final Lane Confirmed By Final Lane Confirmed Date Final Lane Date Ultra Sound Latest Days Gestation 0 09/18/19 18 0 Pre- Flowsheet Flowsheet Date 01/31/2017 Sorto Score Blood Edema Fundus Height Fundus Units Glucose Ketones Leukocytes Nitrite Labor Signs Protein Cervic Dilation Cervic Effacement Cervic Station 0cm Type Weight in lbs Pre/Post Dialysis Refused 122.439866478595 BP Diastolic BP Location Tested BP Systolic BP Type 60 100 sitting Fetus Heart Rate Present Fetus Movement Comments 19y ~7wks by LMP who pr esents for NOB visit. The pt states her LMP was at the beginning of Dec. She has had N/V since last Monday. She went to the ER for the N/V and to see how far along she was. She was given an EDC of 09/20/17 based on her serum hcg. Explained that she would most likely be dated by her 1st u/s. The pt had a positive ct in Mar, she completed the Azithro as well as her partner. She would prefer either chewable or gummy PNV. She is not interested in the flu vaccine. Flowsheet Date 07/13/2020 Sorto Score Blood Edema Fundus Height Fundus Units Glucose Ketones Leukocytes Nitrite Labor Signs Protein Cervic Dilation Cervic Effacement Cervic Station Type Weight in lbs Pre/Post Dialysis Refused BP Diastolic BP Location Tested BP Systolic BP Type Fetus Heart Rate Present Fetus Movement Comments Flowsheet Date 05/20/2021 Sorto Score Blood Edema Fundus Height Fundus Units Glucose Ketones Leukocytes Nitrite Labor Signs Protein Cervic Dilation Cervic Effacement Cervic Station Type Weight in lbs Pre/Post Dialysis Refused BP Diastolic BP Location Tested BP Systolic BP Type Fetus Heart Rate Present Fetus Movement Comments Flowsheet Date 07/09/2021 Sorto Score Blood Edema Fundus Height Fundus Units Glucose Ketones Leukocytes Nitrite Labor Signs Protein Cervic Dilation Cervic Effacement Cervic Station Type Weight in lbs Pre/Post Dialysis Refused BP Diastolic BP Location Tested BP Systolic BP Type Fetus Heart Rate Present Fetus Movement Comments Flowsheet Date 12/01/2021 Sorto Score Blood Edema Fundus Height Fundus Units Glucose Ketones Leukocytes Nitrite Labor Signs Protein Cervic Dilation Cervic Effacement Cervic Station Type Weight in lbs Pre/Post Dialysis Refused BP Diastolic BP Location Tested BP Systolic BP Type Fetus Heart Rate Present Fetus Movement Comments Flowsheet Date 03/17/2022 Sorto Score Blood Edema Fundus Height Fundus Units Glucose Ketones Leukocytes Nitrite Labor Signs Protein Cervic Dilation Cervic Effacement Cervic Station Type Weight in lbs Pre/Post Dialysis Refused With clothes [id number] BP Diastolic BP Location Tested BP Systolic BP Type 72 L arm 100 sitting Fetus Heart Rate Present Fetus Movement Comments Menstrual History Last Menstrual Date Menses Monthly On Bcp Conception Prior Menses Frequency Hcg Plus Date Menarche Onset Age 1112/11/2016 Genetic Screening And Infection History Question Response Note Patient's Age Will Be 35 Years Or Older At Estim ated Date of Delivery false Thalassemia (Sinhala, Kyrgyz, Mediterranean, Or Background): MCV < 80 false Neural Tube Defect (Meningomyelocele, Spina Bifi da, Or Anencephaly) false Congenital Heart Defect false Down Syndrome false Jamir-Sachs (eg, Pentecostal, Cajun, Cymro-[place]) f alse Alvarado Disease false Sickle Cell Disease Or Trait () false Hemophilia Or Other Blood Disorders false Muscular Dystrophy false Cystic Fibrosis false Woodward's Chorea false Mental Retardation/Autism false If Yes, Was Person Tested For Fragile X? false Other Inherited Genetic Or Chromosomal Disorder false Maternal Metabolic Disorder (eg, Type 1 Diabetes , PKU) false Patient Or Baby's Father Had A Child With Defects Not Listed Above false Recurrent Loss, Or A Stillbirth false Medications (including Suppl ements, Vitamins, Herbs, OTC Drugs), Illicit/Recreational Drugs, Alcohol false If Yes, Agent(s) And Strength/Dosage false Any Other Genetic History false Live With Someone With TB Or Exposed To TB false Patient Or Partner Has History Of Genital Herpes false Rash Or Viral Illness Since Last Menstrual Perio d false History Of STD, Gonorrhea, Chlamydia, HPV, Syphi lis false Other Infection History false Delivery Information Delivery Date Delivery Type Labor Anesthesia Weeks Gestation Incision Type Labor Labor Length Hrs Delivered By Post Complications Tubal Sterilization Discharge Date Comments Discharge Information Feeding Method Contraceptive Method Maternal HG B and HCT Levels
--- OUTSIDE RECORDS SUMMARY | 2024-07-14 07:57 | XMS_ITS | Patient Health Record ---
Author Organization [facility] Address [address] [address] Care Team Providers Care First Beater Name Role Phone Jaden Lyonbbir Primary Care Provider [phone] Allergies No Known Allergies Reason For Referral No Information Medications Medication SIG (Take, Route, Frequency, Duration) Notes Start Date End Date Status Promethazine HCl Act kirti Doxycycline Hyclate 100 MG 1 capsule Ora lly Twice a day for 7 days 07/20/2020 Active Benzonatate 100 MG 1 capsule as needed Orally Three times a day for 7 days 07/20/2020 Active Social History Tobacco Use: Social History Observation Description Date Details (start date - stop date) Never Smoker NA - NA Tobacco Use/Smoking Question Answer Notes Are you a nonsmoker Alcohol Screen (Audit-C) Question Answer Notes Did you have a drink contain ing alcohol in the past year? Yes How often did you have a dri nk containing alcohol in the past year? Monthly or less (1 point) How many drinks did you have on a typical day when you were drinking in the past year? 1 or 2 drinks (0 point) How often did you have 6 or more drinks on one occasion in the past year? Never (0 point) Points 1 Interpretation Negative Sexual History Question Answer Notes Had sex in the past 12 months (vaginal, oral, or anal)? Yes with Men only Use protection? Yes Problems Problem Type SNOMED Code ICD Code Onset Dates Problem Status W/U Status Risk Notes Problem 74512963 Cough (R05) Active confirmed Problem 9207392 Tachycardia (R00.0) Active confirmed Problem 49453564 Non-seasonal allergic rhinitis, unspecified trigger (J30.89) Active confirmed Problem 409127399 Family history of asthma (Z82.5) Active confirmed Plan Of Treatment No Information Insurance Providers Payer Name Payer Address Payer Phone Subscriber Number Group Number Insured Name Patient Relationship to Insured Coverage Start Date Coverage End Date GRIMES VALERI [address] [id number] TUSHAR HERNANDEZ Self - patient is the insured 1 Medical (General) History Surgical History Surgery Date(Month/Year)
[2024-07-14 08:02] VITALS: BP 129/89; PULSE 96; RESP 18; TEMP 36.4; O2SAT 98
--- NOTE | 2024-07-14 08:05 | ED_ITS ---
HPI - Ear Problem General Chief complaint: Ear Stated complaint: i think i have a right ear infection Time Seen by Provider: 07/14/24 08:02 History of Present Illness HPI Narrative: Patient is a 29-year-old female who presents to the ER with ear pain bilaterally. Worsening last week. Has been trying to use an ear curette to clean amount. Began the right side and went to the left. No ear drainage. Ear is more tender with direct manipulation. No fresh water or hot tub immersion. Related Data Allergies Allergy/AdvReac Type Severity Reaction Status Date / Time No Known Allergies Allergy Verified 07/14/24 07:54 Review of Systems Constitutional: Constitutional: Reports no additional constitutional complaints ENT: Reports system reviewed and no additional complaints, except as documented PMFSH Past Medical History Medical History Patient denies significant medical history Social History Social History Smoking status: Never smoker Do You Feel Safe in your Home?: Yes Lack of Transportation: No Lack of Food: Never True Current Housing: I Have Housing Concerned About Future Housing: No Difficulty Paying Gas/Electric Bills: No Difficulty Paying for Meds: No Currently Unemployed: No Education: Trade/Vocational Certificate Difficulty w/ Childcare or Family Care: No Spiritual care concerns: No Exam Narrative: GENERAL: Well-appearing, well-nourished, and in no acute distress. HEAD: Normocephalic, atraumatic. ENT: Mucous membranes moist. Ear canal edema bilaterally with erythema. Unable to visualize TM. Year manipulation causes pain bilaterally. NEURO: Alert and oriented x3. PSYCH: Normal mood and affect. Course Course Emergency Course: Discussed diagnosis and treatment plan. Discharge. Vital Signs Vital signs: Vital Signs Temperature 97.5 F L 07/14/24 08:02 Pulse Rate 96 07/14/24 08:02 Respiratory Rate 18 07/14/24 08:02 Blood Pressure 129/89 07/14/24 08:02 Pulse Oximetry 98 07/14/24 08:02 Oxygen Delivery Room Air 07/14/24 08:02 Temperature 97.5 F L 07/14/24 08:02 Pulse Rate 96 07/14/24 08:02 Respiratory Rate 18 07/14/24 08:02 Blood Pressure 129/89 07/14/24 08:02 Pulse Oximetry 98 07/14/24 08:02 Oxygen Delivery Room Air 07/14/24 08:02 Medical Decision Making Vital Signs Vital Signs: Vital Signs Temperature 97.5 F L 07/14/24 08:02 Pulse Rate 96 07/14/24 08:02 Respiratory Rate 18 07/14/24 08:02 Blood Pressure 129/89 07/14/24 08:02 Pulse Oximetry 98 07/14/24 08:02 Oxygen Delivery Room Air 07/14/24 08:02 Temperature 97.5 F L 07/14/24 08:02 Pulse Rate 96 07/14/24 08:02 Respiratory Rate 18 07/14/24 08:02 Blood Pressure 129/89 07/14/24 08:02 Pulse Oximetry 98 07/14/24 08:02 Oxygen Delivery Room Air 07/14/24 08:02 Discharge Plan Discharge Clinical Impression: Otitis externa Patient Disposition: Home Condition: Stable Instructions: Antibiotic Form, Swimyesi's Ear (ED) Additional Instructions: Return the ER if you have increasing pain, have fever 100.4? F, or you have ad ditional concerns. Patient Language: Vietnamese Prescriptions: New ciprofloxacin-dexamethasone 0.3-0.1 % drops,suspension 4 drp EACH EAR Q12H 7 Days Qty: 7.5 0RF naproxen 375 mg tablet 375 mg PO BID Qty: 14 0RF No Action ferrous gluconate 324 mg (38 mg iron) tablet 324 mg PO DAILY Qty: 60 0RF ibuprofen 600 mg Tablet 600 mg PO Q6H PRN (Reason: Cramping) Qty: 30 0RF Follow-up/Referrals: José,Nasir Shirley MD [Primary Care Provider] - 1 Week Stand Alone Forms: Work/School Release IP
== END 2024-07-14 08:27 | disposition home or self-care (01) ==
LOC: ANHED 08:10
PROVIDERS: Emergency Provider Emergency Medicine; PCP Family Medicine
DX: H60.93 Unspecified otitis externa, bilateral (principal)
CPT/HCPCS: 99283